=== PATIENT | male | born 1950 | race Caucasian/White ===

== ENCOUNTER 2017-04-30 23:35 | Observation (INO) | payer OTHER ==
[~2017-04-30] VITALS: Ht 180.3 cm; Wt 89.5 kg
[2017-04-30 23:35] VITALS: BP 184/91; PULSE 114; RESP 18; TEMP 98.1; O2SAT 97
[2017-04-30 23:52] VITALS: BP 201/88; PULSE 103; RESP 18; O2SAT 91; O2SAT 93
[2017-04-30] MEDS ORDERED: ROSU40 PO (23:56)
[2017-04-30] MEDS ORDERED: ASPI-183 PO (23:56)
[2017-04-30] MEDS ORDERED: CALC1TAB87 PO (23:57)
--- NOTE | 2017-04-30 23:58 | RADRPT ---
EXAM DATE/TIME: 04/30/2017 23:31 [facility] COMPARISON: No previous studies available for comparison. INDICATIONS : Seizure; slurred speech. RADIATION DOSE: 56.35 CTDIvol (mGy) MEDICAL HISTORY : Cardiovascular disease. SURGICAL HISTORY : None. ENCOUNTER: Initial ACUITY: 1 day PAIN SCALE: 0/10 LOCATION: cranial TECHNIQUE: Multiple contiguous axial images were obtained of the head. Using automated exposure control and adj ustment of the mA and/or kV according to patient size, radiation dose was kept as low as reasonably a chievable to obtain optimal diagnostic quality images. DICOM format image data is available electro nically for review and comparison. FINDINGS: CEREBRUM: The ventricles and cortical sulci are mildly widened. No evidence of midline shift, mass lesion, hem orrhage or acute infarction. No extra-axial fluid collections are seen. POSTERIOR FOSSA: The cerebellum and brainstem are intact. The 4th ventricle is midline. The cerebellopontine angle i s unremarkable. EXTRACRANIAL: The visualized portion of the orbits is intact. There is mild inferior left maxillary sinus disease. SKULL: The calvaria is intact. No evidence of skull fracture. CONCLUSION: No acute disease. There is mild atrophy. Bandar Pinedo MD on April 30, 2017 at 23:53 Board Certified Radiologist. This report was verified electronically.
[2017-05-01] VITALS (12 sets, daily range): BP systolic 127–163; BP diastolic 65–88; PULSE 70–78; RESP 17–20; TEMP 97.3–98; O2SAT 95–99
--- NOTE | 2017-05-01 00:09 | RADRPT ---
EXAM DATE/TIME: 04/30/2017 23:47 [facility] COMPARISON: No previous studies available for comparison. INDICATIONS : Shortness of breath. MEDICAL HISTORY : None. SURGICAL HISTORY : CABG. ENCOUNTER: Initial ACUITY: 1 day PAIN SCORE: 0/10 LOCATION: Bilateral chest FINDINGS: The patient is status post sternotomy. The heart size is normal. The lungs are grossly clear. CONCLUSION: No acute disease. Bandar Pinedo MD on May 01, 2017 at 0:06 Board Certified Radiologist. This report was verified electronically.
[2017-05-01 00:30] LABS: ALKALINE PHOSPHATASE 54 U/L (45-117); ALT (GPT) 33 U/L (12-78); TOTAL BILIRUBIN ADULT 0.4 MG/DL (0.2-1.0); TOTAL PROTEIN 7.8 GM/DL (6.4-8.2); TROPONIN I LESS THAN 0.02 NG/ML (0.02-0.05)
[2017-05-01 00:32] LABS: AST (GOT) 42 U/L (15-37); BICARBONATE 21.2 MEQ/L (21.0-32.0); BLOOD UREA NITROGEN 15 MG/DL (7-18); CALCIUM 9.1 MG/DL (8.5-10.1); CHLORIDE 108 MEQ/L (98-107); CREATININE 1.15 MG/DL (0.60-1.30); GLOMERULAR FILTRATION RATE 64 ML/MIN (>89); GLUCOSE,RANDOM 100 MG/DL (74-106); SODIUM (NA) 141 MEQ/L (136-145)
[2017-05-01 00:38] LABS: PROTHROMBIN TIME - PATIENT 9.9 SEC (9.8-11.6)
[2017-05-01 02:00] LABS: AUTOMATED NEUTROPHIL # 8.1 TH/MM3 (1.8-7.7); BASOPHIL % 0.3 % (0.0-2.0); EOSINOPHIL # 0.1 TH/MM3 (0-0.4); EOSINOPHIL % 0.5 % (0.0-4.0); HEMATOCRIT 43.7 % (39.0-51.0); HEMOGLOBIN 14.8 GM/DL (13.0-17.0); LYMPH % 10.8 % (9.0-44.0); LYMPHOCYTE # 1.1 TH/MM3 (1.0-4.8); MEAN CELL VOLUME 90.4 FL (80.0-100.0); MEAN CORPUSCULAR HEMOGLOBIN 30.6 PG (27.0-34.0); MEAN CORPUSCULAR HGB CONC 33.8 % (32.0-36.0); MEAN PLATELET VOLUME 6.6 FL (7.0-11.0); MONO % 6.4 % (0.0-8.0); MONOCYTE # 0.6 TH/MM3 (0-0.9); PLATELET COUNT 194 TH/MM3 (150-450); RED BLOOD COUNT 4.83 MIL/MM3 (4.50-5.90); RED CELL DISTRIBUTION WIDTH 13.3 % (11.6-17.2); WHITE BLOOD COUNT 9.8 TH/MM3 (4.0-11.0)
[2017-05-01] MEDS ORDERED: SODIUM CHLORIDE 0.9% FLUSH 10 ML FLUSH IV FLUSH PRN (02:30)
[2017-05-01] MEDS ORDERED: NALOXONE HCL 0.4 MG/ML AMP IV PUSH PRN (02:30)
[2017-05-01] MEDS ORDERED: LORazepam 2 MG/ML VIAL IV PUSH PRN (02:45)
[2017-05-01 03:22] LABS: AMORPHOUS SEDIMENT, URINE RARE; BACTERIA, URINE RARE /hpf; BILIRUBIN, URINE NEG (NEG); BLOOD, URINE NEG (NEG); GLUCOSE,URINE NEG (NEG); HYALINE CAST, URINE 3 /lpf (RARE); KETONE, URINE NEG (NEG); MUCUS URINE FEW /lpf (OCC); NITRITE,URINE NEG (NEG); PH, URINE 6.5 (5.0-8.5); RENAL EPITHELIAL CELLS <1 /hpf; URINE COLOR YELLOW (YELLW/STRAW); URINE LEUKOCYTE ESTERASE NEG (NEG)
--- NOTE | 2017-05-01 03:51 | RADRPT ---
EXAM DATE/TIME: 05/01/2017 03:13 [facility] COMPARISON: No previous studies available for comparison. INDICATIONS : Syncope. MEDICAL HISTORY : Hypercholesterolemia. SURGICAL HISTORY : Coronary bypass. ENCOUNTER: Initial ACUITY: 1 day PAIN SCORE: 0/10 LOCATION: Bilateral neck PEAK SYSTOLIC VELOCITIES (cm/sec): ICA/CCA RATIO: Right: 0.9 Left: 0.7 ICA: Right: 114 Left: 75 CCA: Right: 128 Left: 114 ECA: Right: 163 Left: 141 VERTEBRAL: Right: 20 antegrade Left: 60 antegrade Elevated flow velocities and ICA/CCA ratios have been found to correlate with increased degrees of vessel stenosis, calculated as percentage of diameter relative to a normal segment of distal ICA/CCA FINDINGS: RIGHT CAROTID: Mild plaque is seen at the carotid bulb region. No significant stenosis is visualized. The waveforms are within normal limits. LEFT CAROTID: Mild plaque is seen at the carotid bulb region. No significant stenosis is visualized. The waveforms are within normal limits. VERTEBRAL ARTERIES: Antegrade flow is seen in both vertebral arteries. MISCELLANEOUS: None. CONCLUSION: Mild plaque is seen bilaterally. A significant stenosis is not appreciated. Bandar Pinedo MD on May 01, 2017 at 3:47 Board Certified Radiologist. This report was verified electronically.
--- NOTE | 2017-05-01 05:10 | HHI.HP ---
HPI Service [facility] Primary Care Physician Unknown Admission Diagnosis Syncope, Seizure Diagnoses: Travel History International Travel<30 Days: No Contact w/Intl Traveler <30 Da: No Traveled to Known Affected Are: No History of Present Illness Hx from patient, ER MD communication and review of med records was on couch watching tv and next thing he knows he is on ambulance was in the kitchen and may have heard him and found him stated he bit his tongue was told he was shaking but dont think he hit his head no new meds except vitamin d and calcium pill otc which he started 2 weeks ago or so no headaches no fever no photophobia no ear pains or discharge had a bad flu in dec 2016 still has some cough since then and noticed chest pains with the cough traveled here from [facility] sunday afternoon- by car - took breaks every 4-5hrs because of back pain Review of Systems Except as stated in HPI: all other systems reviewed are Neg Past Family Social History Past Medical History 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 chronic back pain- started in december after the flu because he was bed bound then for about 1 week from flu illness Past Surgical History cabg Allergies: Coded Allergies: No Known Allergies (Verified Allergy, Unknown, 04/30/17) Family History cancer in mother - cant remember which one Social History no smoking/ no etoh abuse./ no drugs Physical Exam Vital Signs Vital Signs Date Time Temp Pulse Resp B/P (MAP) Pulse Ox O2 Delivery O2 Flow Rate FiO2 05/01/17 03:04 97.9 70 18 153/65 (94) 99 Room Air 05/01/17 01:08 78 18 143/76 (98) 99 Nasal Cannula 2.00 05/01/17 00:06 81 18 93 Nasal Cannula 3.00 04/30/17 23:52 93 Nasal Cannula 3.00 04/30/17 23:52 103 18 201/88 (125) 91 Nasal Cannula 2.00 04/30/17 23:35 98.1 114 18 184/91 (122) 97 Room Air Physical Exam GENERAL: This is a well-nourished, well-developed patient, in no apparent distress. SKIN: No rashes, ecchymoses or lesions. Cool and dry. HEAD: Atraumatic. Normocephalic. No temporal or scalp tenderness. EYES: No scleral icterus. No injection or drainage. ENT: Nose without bleeding, purulent drainage or septal hematoma. Airway patent.tongue bite noted NECK: Trachea midline. No JVD . Supple, nontender, no meningeal signs. CARDIOVASCULAR: Regular rate and rhythm without murmurs, gallops, or rubs. RESPIRATORY: Clear to auscultation. Breath sounds equal bilaterally. No wheezes , rales, or rhonchi. GASTROINTESTINAL: Abdomen soft, non-tender, nondistended. No guarding. MUSCULOSKELETAL: Extremities without clubbing, cyanosis, or edema. . No calf tenderness. NEUROLOGICAL: Awake and alert. Cranial nerves II through XII intact. Motor and sensory grossly within normal limits. Normal speech. Laboratory Laboratory Tests Test 04/30/17 23:42 05/01/17 01:50 05/01/17 03:50 Prothrombin Time 9.9 Prothromb Time International Ratio 1.0 Activated Partial Thromboplast Time 19.2 Blood Urea Nitrogen 15 Creatinine 1.15 Random Glucose 100 Total Protein 7.8 Albumin 4.0 Calcium Level 9.1 Alkaline Phosphatase 54 Aspartate Amino Transf (AST/SGOT) 42 Alanine Aminotransferase (ALT/SGPT) 33 Total Bilirubin 0.4 Sodium Level 141 Potassium Level 4.3 Chloride Level 108 Carbon Dioxide Level 21.2 Anion Gap 12 Estimat Glomerular Filtration Rate 64 Total Creatine Kinase 124 Troponin I LESS THAN 0.02 Ethyl Alcohol Level LESS THAN 3 White Blood Count 9.8 Red Blood Count 4.83 Hemoglobin 14.8 Hematocrit 43.7 Mean Corpuscular Volume 90.4 Mean Corpuscular Hemoglobin 30.6 Mean Corpuscular Hemoglobin Concent 33.8 Red Cell Distribution Width 13.3 Platelet Count 194 Mean Platelet Volume 6.6 Neutrophils (%) (Auto) 82.0 Lymphocytes (%) (Auto) 10.8 Monocytes (%) (Auto) 6.4 Eosinophils (%) (Auto) 0.5 Basophils (%) (Auto) 0.3 Neutrophils # (Auto) 8.1 Lymphocytes # (Auto) 1.1 Monocytes # (Auto) 0.6 Eosinophils # (Auto) 0.1 Basophils # (Auto) 0.0 CBC Comment DIFF FINAL Differential Comment Urine Color YELLOW Urine Turbidity HAZY Urine pH 6.5 Urine Specific [place] 1.021 Urine Protein 30 Urine Glucose (UA) NEG Urine Ketones NEG Urine Occult Blood NEG Urine Nitrite NEG Urine Bilirubin NEG Urine Urobilinogen LESS THAN 2.0 Urine Leukocyte Esterase NEG Urine RBC 4 Urine WBC 2 Urine Renal Epithelial Cells <1 Urine Amorphous Sediment RARE Urine Bacteria RARE Urine Hyaline Casts 3 Urine Mucus FEW Microscopic Urinalysis Comment CATH-CULTURE IND Urine Opiates Screen NEG Urine Barbiturates Screen NEG Urine Amphetamines Screen NEG Urine Benzodiazepines Screen NEG Urine Cocaine Screen NEG Urine Cannabinoids Screen NEG Date/Time Source Procedure Growth Status 05/01/17 03:50 Urine Catheterized Urine Urine Culture Pending Received Result Diagram: 05/01/17 0150 04/30/17 2342 Imaging Last 48 hours Impressions Carotid Artery Ultrasound 05/01/17 0000 Signed Impressions: Service Date/Time: Monday, May 01, 2017 03:13 - CONCLUSION: Mild plaque is seen bilaterally. A significant stenosis is not appreciated. Bandar Pinedo MD Head CT [id number]/30/[id number] Signed Impressions: Service Date/Time: Sunday, April 30, 2017 23:31 - CONCLUSION: No acute disease. There is mild atrophy. Bandar Pinedo MD Chest X-Ray [id number]/30/[id number] Signed Impressions: Service Date/Time: Sunday, April 30, 2017 23:47 - CONCLUSION: No acute disease. MD Se [place] VTE Risk Assessment Caprini VTE Risk Assessment: Mod/High Risk (score >= 2) Caprini Risk Assessment Model Point Value = 1 Point Value = 2 Point Value = 3 Point Value = 5 Age 41-60 Minor surgery BMI > 25 kg/m2 Swollen legs Varicose veins or History of unexplained or recurrent spontaneous Oral contraceptives or hormone replacement Sepsis (< 1 month) Serious lung disease, including pneumonia (< 1 month) Abnormal pulmonary function Acute myocardial infarction Congestive heart failure (< 1 month) History of inflammatory bowel disease Medical patient at bed rest Age 61-74 Arthroscopic surgery Major open surgery (> 45 min) Laparoscopic surgery (> 45 min) Malignancy Confined to bed (> 72 hours) Immobilizing plaster cast Central venous access Age >= 75 History of VTE Family history of VTE Factor V Leiden Prothrombin [id number] Lupus anticoagulant Anticardiolipin antibodies Elevated serum homocysteine Heparin-induced thrombocytopenia Other congenital or acquired thrombophilia Stroke (< 1 month) Elective arthroplasty Hip, pelvis, or leg fracture Acute spinal cord injury (< 1 month) Prophylaxis Regimen Total Risk Factor Score Risk Level Prophylaxis Regimen 0-1 Low Early ambulation 2 Moderate Order ONE of the following: *Sequential Compression Device (SCD) *Heparin 5000 units SQ BID 3-4 Higher Order ONE of the following medications: *Heparin 5000 units SQ TID *Enoxaparin/Lovenox 40 mg SQ daily (WT < 150 kg, CrCl > 30 mL/min) *Enoxaparin/Lovenox 30 mg SQ daily (WT < 150 kg, CrCl > 10-29 mL/min) *Enoxaparin/Lovenox 30 mg SQ BID (WT < 150 kg, CrCl > 30 mL/min) AND/OR *Sequential Compression Device (SCD) 5 or more Highest Order ONE of the following medications: *Heparin 5000 units SQ TID (Preferred with Epidurals) *Enoxaparin/Lovenox 40 mg SQ daily (WT < 150 kg, CrCl > 30 mL/min) *Enoxaparin/Lovenox 30 mg SQ daily (WT < 150 kg, CrCl > 10-29 mL/min) *Enoxaparin/Lovenox 30 mg SQ BID (WT < 150 kg, CrCl > 30 mL/min) AND *Sequential Compression Device (SCD) Assessment and Plan Assessment and Plan Impression: New-onset seizure Abnormal UA 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 chronic back pain- started in December after the flu because he was bed bound then for about 1 week from flu illness Plan: Seizure precautions. EEG. Ativan when necessary for seizures. Neurology consult. Carotid sono. Reviewed. No evidence of hemodynamically significant stenosis. Echocardiogram. However from history, this is more clearly that of seizures. No clear etiology of his seizures such as drug withdrawals/trauma/surgeries. He does have history of testicular cancer which was treated with aggressive chemotherapy and exploratory surgeries. Therefore would obtain MRI of the brain with and without contrast to rule out neoplastic process. DVT prophylaxis with SCD. Discussed Condition With Patient, ER physician, nursing staff Gio Silveira MD May 01, 2017 05:10
--- NOTE | 2017-05-01 06:39 | PD ---
HPI . Syncope/seizure Chief Complaint: Stroke Alert Time Seen by Provider: 23:38 Travel History International Travel<30 days: No Contact w/Intl Traveler<30days: No Traveled to known affect area: No History of Present Illness HPI 66-year-old male with witnessed syncopal episode and seizure at a hotel this evening. Patient has no history of syncope no history of seizures, witnessed by . Generalized tonic-clonic seizure with no focality to the best otherwise recollection. Patient does not recall the incident, twisting her murmurs is waking up in the ambulance. At presentation patient was somewhat confused but awake. EMS notes patient was at first fairly somnolent, with a course of transport approximate 15 minutes, patient regained full consciousness was only slightly confused by presentation to ED. She denies any prodromal symptoms of headache, visual changes, chest pain, palpitations, fever chills or sweats. Couple of traveled down from [place], no complaints of having leg pain or swelling. No history of DVTs or family history of DVTs. [facility]LY [facility], [facility] Past Medical History Narrative Medical Past medical history reviewed High Cholesterol: Yes Tetanus Vaccination: Unknown Influenza Vaccination: Yes Past Surgical History Other Surgery: Yes (coronary bypass) Social History Alcohol Use: Yes (occasional ) Tobacco Use: No Substance Use: No Allergies-Medications (Allergen,Severity, Reaction): Coded Allergies: No Known Allergies (Verified Allergy, Unknown, 04/30/17) Reported Meds & Prescriptions Reported Meds & Active Scripts Active Reported Calcium 600 with Vitamin D (Calcium Carbonate-Cholecalciferol) 600-400 mg-Unit Tab 1 Tab PO DAILY Crestor (Rosuvastatin Calcium) 40 Mg Tab 40 Mg PO DAILY Aspirin 325 Mg Tab 325 Mg PO DAILY Narrative Medication Allergies and medications reviewed Review of Systems Except as stated in HPI: all other systems reviewed are Neg General / Constitutional: No: Fever Eyes: No: Visual changes HENT: No: Headaches Cardiovascular: Positive: Syncope, No: Chest Pain or Discomfort, Palpitations, Irregular Rhythm, Tachycardia, Diaphoresis Respiratory: No: Shortness of Breath, Orthopnea, Hemoptysis, Stridor, Night Sweats, Pleuritic Pain Gastrointestinal: No: Abdominal Pain Genitourinary: No: Dysuria Musculoskeletal: No: Pain Skin: No Rash Neurologic: No: Weakness Psychiatric: No: Depression Endocrine: No: Polydipsia Hematologic/Lymphatic: No: Easy Bruising Physical Exam Narrative GENERAL: Awake and alert oriented 3 no acute distress. Slightly confused at presentation SKIN: Warm and dry. Color is normal no diaphoresis cyanosis or pallor or mottling HEAD: Atraumatic. Normocephalic. EYES: Pupils equal and round. No scleral icterus. No injection or drainage. ENT: No nasal bleeding or discharge. Mucous membranes pink and moist. NECK: Trachea midline. No JVD. Supple full range of motion CARDIOVASCULAR: Regular rate and rhythm. S1-S2 no murmurs or gallops RESPIRATORY: No accessory muscle use. Clear to auscultation. Breath sounds equal bilaterally. GASTROINTESTINAL: Abdomen soft, non-tender, nondistended. Hepatic and splenic margins not palpable. MUSCULOSKELETAL: Extremities without clubbing, cyanosis, or edema. No obvious deformities. NEUROLOGICAL: Awake and alert. No obvious cranial nerve deficits. Motor grossly within normal limits. Five out of 5 muscle strength in the arms and legs. Normal speech. Concentration and short-term memory slightly slowed, improved with observation. Repeat exam benign PSYCHIATRIC: Appropriate mood and affect; insight and judgment normal. Data Data Last Documented VS Vital Signs Date Time Temp Pulse Resp B/P (MAP) Pulse Ox O2 Delivery O2 Flow Rate FiO2 05/01/17 01:08 78 18 143/76 (98) 99 Nasal Cannula 2.00 04/30/17 23:35 98.1 Orders Orders Electrocardiogram (04/30/17 23:38) Prothrombin Time / Inr (Pt) (04/30/17 23:38) Act Partial Throm Time (Ptt) (04/30/17 23:38) Comprehensive Metabolic Panel (04/30/17 23:38) Creatine Kinase (Cpk) (04/30/17 23:38) Drug Screen, Random Urine (04/30/17 23:38) Troponin I (04/30/17 23:38) Urinalysis - C+S If Indicated (04/30/17 23:38) Ct Brain W/O Iv Contrast(Rout) (04/30/17 23:38) Chest, Single Ap (04/30/17 23:38) Ecg Monitoring (04/30/17 23:38) Iv Access Insert/Monitor (04/30/17 23:38) Oximetry (04/30/17 23:38) Alcohol (Ethanol) (04/30/17 23:38) Complete Blood Count With Diff (05/01/17 00:49) Admit Order (Ed Use Only) (05/01/17 02:28) Labs Laboratory Tests Test 04/30/17 23:42 05/01/17 01:50 Prothrombin Time 9.9 SEC Prothromb Time International Ratio 1.0 RATIO Activated Partial Thromboplast Time 19.2 SEC Blood Urea Nitrogen 15 MG/DL Creatinine 1.15 MG/DL Random Glucose 100 MG/DL Total Protein 7.8 GM/DL Albumin 4.0 GM/DL Calcium Level 9.1 MG/DL Alkaline Phosphatase 54 U/L Aspartate Amino Transf (AST/SGOT) 42 U/L Alanine Aminotransferase (ALT/SGPT) 33 U/L Total Bilirubin 0.4 MG/DL Sodium Level 141 MEQ/L Potassium Level 4.3 MEQ/L Chloride Level 108 MEQ/L Carbon Dioxide Level 21.2 MEQ/L Anion Gap 12 MEQ/L Estimat Glomerular Filtration Rate 64 ML/MIN Total Creatine Kinase 124 U/L Troponin I LESS THAN 0.02 NG/ML Ethyl Alcohol Level LESS THAN 3 MG/DL White Blood Count 9.8 TH/MM3 Red Blood Count 4.83 MIL/MM3 Hemoglobin 14.8 GM/DL Hematocrit 43.7 % Mean Corpuscular Volume 90.4 FL Mean Corpuscular Hemoglobin 30.6 PG Mean Corpuscular Hemoglobin Concent 33.8 % Red Cell Distribution Width 13.3 % Platelet Count 194 TH/MM3 Mean Platelet Volume 6.6 FL Neutrophils (%) (Auto) 82.0 % Lymphocytes (%) (Auto) 10.8 % Monocytes (%) (Auto) 6.4 % Eosinophils (%) (Auto) 0.5 % Basophils (%) (Auto) 0.3 % Neutrophils # (Auto) 8.1 TH/MM3 Lymphocytes # (Auto) 1.1 TH/MM3 Monocytes # (Auto) 0.6 TH/MM3 Eosinophils # (Auto) 0.1 TH/MM3 Basophils # (Auto) 0.0 TH/MM3 CBC Comment DIFF FINAL Differential Comment MDM Medical Decision Making Medical Screen Exam Complete: Yes Emergency Medical Condition: Yes Medical Record Reviewed: Yes Differential Diagnosis TIA versus CVA, syncope, seizure, hypoperfusion seizure Narrative Course Patient had steady improvement while in ED. CT of the head reviewed by radiology, no acute intracranial abnormalities. Laboratory exam is reviewed, no significant rales. EKG sinus tachycardia at 10 3 bpm, nonischemic, intervals normal. Case discussed with Dr. Silveira from hospital service, admitted for observation. MRI/MRA of the brain for the a.m. discussed. Diagnosis Primary Impression: Syncope and collapse Additional Impression: Seizure Admitting Information Admitting Physician Requests: Observation Condition: Angel Varner MD May 01, 2017 06:39
[2017-05-01 06:47] LABS: TROPONIN I LESS THAN 0.02 NG/ML (0.02-0.05)
[2017-05-01] MEDS: SODIUM CHLORIDE 0.9% FLUSH 10 ML FLUSH IV FLUSH SCH ×2 (09:23→21:42)
[2017-05-01] MEDS: ATORVASTATIN 80 MG TAB PO SCH (09:24)
[2017-05-01] MEDS: ASPIRIN 325 MG TAB PO SCH (09:24)
--- NOTE | 2017-05-01 09:46 | PD.CONS ---
History of Present Illness Service Neurology Consult Requested By medical Reason for Consult syncope, sz Primary Care Physician Unknown History of Present Illness 66 y/o m from [facility] admitted for syncopal episode. was speaking with son on phone at around 9pm when he started shaking observed by his and become confused. does not entirely recollect event. not present. no previous occurrence. no hx of tia/stroke/sz. no hx of head injury. denies binge drinking or any provoking factors. no hx of medical clerk infection. on aspirin for hx of cabg. carotid u/s negative. ct brain naicp. glucose 100. uds negative. Review of Systems Except as stated in HPI: all other systems reviewed are Neg Past Family Social History Past Medical History 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 chronic back pain- started in december after the flu because he was bed bound then for about 1 week from flu illness Past Surgical History cabg Allergies: Coded Allergies: No Known Allergies (Verified Allergy, Unknown, 04/30/17) Family History cancer in mother - cant remember which one Social History no smoking/ no etoh abuse./ no drugs Review of Systems All other ROS: ROS reviewed as documented in chart Past Family Social History Allergies: Coded Allergies: No Known Allergies (Verified Allergy, Unknown, 04/30/17) Active Ordered Medications Current Medications Medications (Trade) Dose Ordered Sig/Bianka Route Start Time Stop Time Status Last Admin (NS Flush) 2 ml UNSCH PRN IV FLUSH 05/01/17 02:30 (NS Flush) 2 ml BID IV FLUSH 05/01/17 09:00 05/01/17 09:23 (Narcan Inj) 0.4 mg UNSCH PRN IV PUSH 05/01/17 02:30 (Ativan Inj) 1 mg Q15M PRN IV PUSH 05/01/17 02:45 (Aspirin) 325 mg DAILY PO 05/01/17 09:00 05/01/17 09:24 (Lipitor) 80 mg DAILY PO 05/01/17 09:00 05/01/17 09:24 Exam I&O / VS Vital Signs Date Time Temp Pulse Resp B/P (MAP) Pulse Ox O2 Delivery O2 Flow Rate FiO2 05/01/17 08:29 74 18 151/77 (101) 98 Room Air 05/01/17 06:59 98.0 78 18 137/71 (93) 99 Room Air 05/01/17 03:04 97.9 70 18 153/65 (94) 99 Room Air 05/01/17 01:08 78 18 143/76 (98) 99 Nasal Cannula 2.00 05/01/17 00:06 81 18 93 Nasal Cannula 3.00 04/30/17 23:52 93 Nasal Cannula 3.00 04/30/17 23:52 103 18 201/88 (125) 91 Nasal Cannula 2.00 04/30/17 23:35 98.1 114 18 184/91 (122) 97 Room Air General: Alert and Oriented, No acute distress Eye: EOMI Respiratory: Non-labored respirations Musculoskeletal: ROM Neurologic: Alert, Oriented, Normal sensory, Normal motor, No focal defects, CN II-XII intact, Normal DTR's Psychiatric: Cooperative, Appropriate mood & affect, Normal judgement, Non- suicidal Review/Management Diagnosis/Plan: (1) Seizure ICD Codes: R56.9 - Unspecified convulsions Status: Acute Plan: possible vs convulsive syncope recs eeg/tele echo mri/mra brain labs orthostatics no driving/climbing heights consider sz med if eeg + and rest of w/u negative (2) Syncope and collapse ICD Codes: R55 - Syncope and collapse Status: Acute (3) S/P CABG x 5 ICD Codes: Z95.1 - Presence of aortocoronary bypass graft Status: Chronic (4) HLD (hyperlipidemia) ICD Codes: E78.5 - Hyperlipidemia, unspecified Status: Chronic Jhonatan Vieira MD May 01, 2017 09:46
--- NOTE | 2017-05-01 10:20 | HHI.PR ---
Subjective Remarks Follow-up on patient with syncopal episode, questionable seizure. Patient seen and examined. is at the bedside. Patient states he feels well. Denies any complaints at this time. Denies any vision changes, headaches, weakness, numbness or tingling. Denies any chest pain or shortness of breath. Denies any nausea, vomiting or abdominal pain. He has a history of chronic back pain recently exacerbated following a flu illness a week ago but does not take any pain medication at home. Since the flu, he reports some lingering intermittent cough with associated chest pain but states it's infrequent. Patient denies any history of seizure disorder, stroke or TIA. Objective Vitals Vital Signs Date Time Temp Pulse Resp B/P (MAP) Pulse Ox O2 Delivery O2 Flow Rate FiO2 05/01/17 08:29 74 18 151/77 (101) 98 Room Air 05/01/17 06:59 98.0 78 18 137/71 (93) 99 Room Air 05/01/17 03:04 97.9 70 18 153/65 (94) 99 Room Air 05/01/17 01:08 78 18 143/76 (98) 99 Nasal Cannula 2.00 05/01/17 00:06 81 18 93 Nasal Cannula 3.00 04/30/17 23:52 93 Nasal Cannula 3.00 04/30/17 23:52 103 18 201/88 (125) 91 Nasal Cannula 2.00 04/30/17 23:35 98.1 114 18 184/91 (122) 97 Room Air Result Diagram: 05/01/17 0150 04/30/17 2342 Imaging Last Impressions Carotid Artery Ultrasound 05/01/17 0000 Signed Impressions: Service Date/Time: Monday, May 01, 2017 03:13 - CONCLUSION: Mild plaque is seen bilaterally. A significant stenosis is not appreciated. Bandar Pinedo MD Head CT 04/30/172337 Signed Impressions: Service Date/Time: Sunday, April 30, 2017 23:31 - CONCLUSION: No acute disease. There is mild atrophy. Bandar Pinedo MD Chest X-Ray 04/30/172337 Signed Impressions: Service Date/Time: Sunday, April 30, 2017 23:47 - CONCLUSION: No acute disease. Bandar Pinedo MD Objective Remarks GENERAL: This is a well-nourished, well-developed male patient, in no apparent distress. Awake and alert. at the bedside. SKIN: Cool and dry. HEAD: Atraumatic. Normocephalic. EYES: EOMI. No scleral icterus. No injection or drainage. ENT: Nose without bleeding or purulent drainage. Airway patent. Tongue bite noted. NECK: Trachea midline. No JVD . Supple, nontender, no meningeal signs. CARDIOVASCULAR: Regular rate and rhythm without murmurs, gallops, or rubs. RESPIRATORY: Clear to auscultation. Breath sounds equal bilaterally. No wheezes , rales, or rhonchi. GASTROINTESTINAL: Abdomen soft, non-tender, nondistended. No guarding. MUSCULOSKELETAL: Extremities without clubbing, cyanosis, or edema. No calf tenderness. NEUROLOGICAL: Awake and alert. Cranial nerves II through XII grossly intact. Motor and sensory grossly within normal limits bilateral upper and lower extremities. Normal speech. Medications and IVs Current Medications Medications (Trade) Dose Ordered Sig/Bianka Route Start Time Stop Time Status Last Admin (NS Flush) 2 ml UNSCH PRN IV FLUSH 05/01/17 02:30 (NS Flush) 2 ml BID IV FLUSH 05/01/17 09:00 05/01/17 09:23 (Narcan Inj) 0.4 mg UNSCH PRN IV PUSH 05/01/17 02:30 (Ativan Inj) 1 mg Q15M PRN IV PUSH 05/01/17 02:45 (Aspirin) 325 mg DAILY PO 05/01/17 09:00 05/01/17 09:24 (Lipitor) 80 mg DAILY PO 05/01/17 09:00 05/01/17 09:24 A/P Assessment and Plan Syncope Possible seizure - CT head shows no acute process - Neurology consulted, appreciate assistance. No driving or climbing heights per neuro. Will consider seizure medication if EEG positive and remainder of workup negative. - EEG - MRI/MRA brain - 2D echocardiogram - obtain A1c, TSH and lipid profile - US carotids shows no significant stenosis - initial troponin 0.02. Continue to trend Oswaldo. - Continuous cardiac monitoring - seizure precautions CAD s/p CABG - patient has no cardiac complaints - ASA daily - monitor on telemetry Bacteruria - UA with 4 RBCs, rare bacteria, culture indicated - patient is asymptomatic - f/u on urine culture results. Will hold off on initiation of antibiotics at this time. Hyperlipidemia - Resume patient's home dose of Lipitor 80 mg daily Chronic back pain - stable DVT prophylaxis - Heparin sq Mitali Pleitez May 01, 2017 10:20
[2017-05-01] MEDS ORDERED: GADODIAMIDE PF 287 MG/ML 20 ML VIAL (for RAD MRI) IV PUSH ONE (11:30)
--- NOTE | 2017-05-01 11:46 | RADRPT ---
EXAM DATE/TIME: 05/01/2017 10:59 [facility] COMPARISON: CT BRAIN W/O CONTRAST, April 30, 2017, 23:31. INDICATIONS : CVA. Syncopal episode with possible seizure. CONTRAST: 18 cc Omniscan (gadodiamide) IV MEDICAL HISTORY : Hypercholesterolemia. Carcinoma, testicular. SURGICAL HISTORY : CABG ENCOUNTER: Initial ACUITY: 2 day PAIN SCORE: 0/10 LOCATION: head TECHNIQUE: Multiplanar, multisequence MRI of the brain was performed both prior to and following the administrat ion of paramagnetic contrast. FINDINGS: CEREBRUM: The ventricles are normal for age. No evidence of midline shift, mass lesion, hemorrhage or acute in farction. No extraaxial fluid collections are seen. The pituitary gland and suprasellar cistern are normal in configuration. WHITE MATTER: Few dispersed areas of small deep white matter microvascular ischemic demyelinization. POSTERIOR FOSSA: The cerebellum and brainstem are intact. The 4th ventricle is midline. The cerebellopontine angle is unremarkable. The cerebellar tonsils are normal in position. DIFFUSION IMAGING: No focal areas of restricted diffusion are seen. No evidence of acute infarction. EXTRACRANIAL: The visualized portions of the orbits and paranasal sinuses are unremarkable. POST-CONTRAST: No abnormal areas of parenchymal or dural enhancement. No evidence of blood-brain barrier breakdown. CONCLUSION: No acute intracranial process. Negative for enhancing lesion or metastatic disease. Few deep white matter punctate areas of microvascular ischemi c demyelinization. aRghu Kwan MD on May 01, 2017 at 11:40 Board Certified Radiologist. This report was verified electronically.
--- NOTE | 2017-05-01 11:48 | RADRPT ---
EXAM DATE/TIME: 05/01/2017 10:59 [facility] COMPARISON: No previous studies available for comparison. INDICATIONS : Syncopal episode with possible seizure. MEDICAL HISTORY : Carcinoma, testicular. Hypercholesterolemia. SURGICAL HISTORY : CABG ENCOUNTER: Initial ACUITY: 2 day PAIN SCORE: 0/10 LOCATION: head Please note a normal MRA of the brain does not entirely exclude the possibility of a small aneurysm, nor the possibility of distal intracranial vessel disease. TECHNIQUE: 3D time of flight MRA was performed. Source images, multiplanar STS MIP, and 3D volume MIP reconstru ctions were reviewed. FINDINGS: There is excellent visualization of the major intracranial arteries out to the second-order branch ve ssels. There is no evidence for aneurysm, vessel truncation or stenosis, and no evidence for vascula r malformation. CONCLUSION: Normal examination. Raghu Kwan MD on May 01, 2017 at 11:44 Board Certified Radiologist. This report was verified electronically.
[2017-05-01 14:10] LABS: CHOLESTEROL 148 MG/DL (120-200); MAGNESIUM 2.3 MG/DL (1.5-2.5)
[2017-05-01 14:13] LABS: HDL CHOLESTEROL 49.2 MG/DL (40.0-60.0); LDL CHOLESTEROL 62 MG/DL (0-99); TRIGLYCERIDES 186 MG/DL (42-150); TROPONIN I LESS THAN 0.02 NG/ML (0.02-0.05)
--- NOTE | 2017-05-01 14:22 | EKG ---
Date Performed: 04/30/2017 Time Performed: 23:53:36 PTAGE: 66 years EKG: SINUS TACHYCARDIA POSSIBLE LEFT ATRIAL ENLARGEMENT POSSIBLE RIGHT VENTRICULAR CONDUCTION DE LAY NONSPECIFIC ST & T-WAVE ABNORMALITY ABNORMAL RHYTHM ECG consider myocardial ischemia NO PREVIOUS TRACING DOCTOR: Stefanie Laureano Interpretating Date/Time 05/01/2017 14:21:09
--- NOTE | 2017-05-01 14:23 | EKG ---
Date Performed: 05/01/2017 Time Performed: 05:50:54 PTAGE: 66 years EKG: Sinus rhythm POSSIBLE RIGHT VENTRICULAR CONDUCTION DELAY MODERATE T-WAVE ABNORMALITY, CONSIDER LATERAL ISCHEMIA A BNORMAL ECG Compared to PREVIOUS TRACING sinus tachycardia has resolved and there has been some improvement in t he ST segment depression but the T wave changes persist. Clinical correlation will be important. PREV IOUS TRACIN04/30/2017 23.53 DOCTOR: Stefanie Laureano Interpretating Date/Time 05/01/2017 14:22:38
[2017-05-01 18:35] LABS: HEMOGLOBIN A1C 5.9 % (4.3-6.0)
--- NOTE | 2017-05-01 18:55 | MG ---
cc: JESUS REIS M.D. Lab No: [id number] Date: 05/01/17 Age: Sex: M Race: Syncopal episode Aspirin, Lipitor A 10-11 Hz 60 microvolt symmetric posterior rhythm is noted. The patient falls asleep and reaches stage II sleep with some K complexes. The recording overall is synchronous and symmetric. Photic stimulation was performed without significant posterior driving. Hyperventilation was not performed. IMPRESSION Normal primarily stage II sleep EEG - no evidence for focal or diffuse abnormality. MD GISELLE Doe/ /6:18 PM /6:36 PM
--- NOTE | 2017-05-01 19:41 | ECHRPT ---
Indication: Syncope and collapse CONCLUSIONS The left ventricular systolic function is normal with an estimated ejection fraction in the range of 60-65%. Wall thickness is normal. Normal left ventricular size. Mild mitral valve regurgitation. BP: 137 / 71 HR: 78 Rhythm: Sinus MEASUREMENTS (Male / Female) Normal Values Technical Quality:Fair 2D ECHO LV Diastolic Diameter PLAX 5.2 cm 4.2 - 5.9 / 3.9 - 5.3 cm LV Systolic Diameter PLAX 3.8 cm IVS Diastolic Thickness 1.1 cm 0.6 - 1.0 / 0.6 - 0.9 cm LVPW Diastolic Thickness 1.0 cm 0.6 - 1.0 / 0.6 - 0.9 cm LV Relative Wall Thickness 0.4 LVOT Diameter 2.1 cm M-MODE Aortic Root Diameter MM 2.9 cm LA Systolic Diameter MM 4.4 cm LA Ao Ratio MM 1.5 AV Cusp Separation MM 1.9 cm DOPPLER AV Peak Velocity 125.0 cm/s AV Peak Gradient 6.3 mmHg LVOT Peak Velocity 109.0 cm/s LVOT Peak Gradient 4.8 mmHg AV Area Cont Eq pk 3.0 cm MR Peak Velocity 360.0 cm/s MR Peak Gradient 51.8 mmHg Mitral E Point Velocity 85.9 cm/s Mitral A Point Velocity 54.3 cm/s Mitral E to A Ratio 1.6 LV E' Lateral Velocity 6.3 cm/s Mitral E to LV E' Lateral Ratio 13.5 LV E' Septal Velocity 5.8 cm/s Mitral E to LV E' Septal Ratio 14.9 TR Peak Velocity 241.0 cm/s TR Peak Gradient 23.2 mmHg Right Atrial Pressure 10.0 mmHg Pulmonary Artery Systolic Pressu 33.2 mmHg Right Ventricular Systolic Press 33.2 mmHg PV Peak Velocity 89.6 cm/s PV Peak Gradient 3.2 mmHg FINDINGS LEFT VENTRICLE The left ventricular systolic function is normal with an estimated ejection fraction in the range of 60-65%. Wall thickness is normal. Normal left ventricular size. RIGHT VENTRICLE Normal right ventricular size and systolic function. LEFT ATRIUM The left atrial size is normal. RIGHT ATRIUM The right atrial size is normal. ATRIAL SEPTUM Normal atrial septal thickness without atrial level shunting by limited color doppler interrogation. AORTA The aortic root and proximal ascending aorta are normal in size on limited imaging. MITRAL VALVE Mild mitral valve regurgitation. AORTIC VALVE Trileaflet aortic valve. No aortic valve stenosis or regurgitation. TRICUSPID VALVE Structurally normal tricuspid valve. No tricuspid valve stenosis or regurgitation. PULMONARY VALVE No pulmonary valve regurgitation or stenosis. VESSELS The inferior vena cava is normal in size. PERICARDIUM No pericardial effusion. Zhane العراقي MD, FACC (Electronically Signed) Final Date:01 May 2017 19:41
[2017-05-01] MEDS: HEPARIN SODIUM - SQ 10,000 UNITS/ML VIAL SQ SCH (21:42)
[2017-05-02 00:05] VITALS: PULSE 66
[2017-05-02 00:36] VITALS: BP 136/82; PULSE 66; RESP 18; TEMP 97.8; O2SAT 96
[2017-05-02 04:00] VITALS: PULSE 64
[2017-05-02 07:24] VITALS: BP 157/78; PULSE 67; RESP 18; TEMP 97.9; O2SAT 97
--- NOTE | 2017-05-02 08:01 | HHI.PR ---
Review/Management Diagnosis/Plan: (1) Seizure ICD Codes: R56.9 - Unspecified convulsions Status: Acute Plan: hx suggestive of sz. mother apparently had one sz eeg-negative carotid-negative mri/mra brain-negative lipid panel nml orthostatics nml recs d/c planning today continue aspirin no sz meds at this point. if recurrent event then will add. pt/spouse agree no driving/climbing heights x 6 months of being sz/spell free (2) Syncope and collapse ICD Codes: R55 - Syncope and collapse Status: Acute (3) S/P CABG x 5 ICD Codes: Z95.1 - Presence of aortocoronary bypass graft Status: Chronic (4) HLD (hyperlipidemia) ICD Codes: E78.5 - Hyperlipidemia, unspecified Status: Chronic Subjective Subjective Comments No acute events reported describes pt as having convulsive activity and strange gustatory sounds remembers his mother having had a single sz No headache No chest pain No dyspnea Active Medications Current Medications Medications (Trade) Dose Ordered Sig/Bianka Route Start Time Stop Time Status Last Admin (NS Flush) 2 ml UNSCH PRN IV FLUSH 05/01/17 02:30 (NS Flush) 2 ml BID IV FLUSH 05/01/17 09:00 05/01/17 21:42 (Narcan Inj) 0.4 mg UNSCH PRN IV PUSH 05/01/17 02:30 (Ativan Inj) 1 mg Q15M PRN IV PUSH 05/01/17 02:45 (Aspirin) 325 mg DAILY PO 05/01/17 09:00 05/01/17 09:24 (Lipitor) 80 mg DAILY PO 05/01/17 09:00 05/01/17 09:24 (Heparin Inj) 5,000 units Q12HR SQ 05/01/17 21:00 05/01/17 21:42 Allergies Allergies Coded Allergies No Known Allergies (Verified Allergy, Unknown, 04/30/17) Review of Systems All other ROS: ROS reviewed as documented in chart Exam I&O / VS Vital Signs Date Time Temp Pulse Resp B/P (MAP) Pulse Ox O2 Delivery O2 Flow Rate FiO2 05/02/17 07:24 97.9 67 18 157/78 (104) 97 05/02/17 04:00 64 05/02/17 00:36 97.8 66 18 136/82 (100) 96 05/02/17 00:05 66 05/01/17 22:00 71 127/84 (98) 97 153/83 (106) 05/01/17 21:11 97.9 72 18 132/69 (90) 95 05/01/17 20:00 77 05/01/17 16:12 76 05/01/17 16:00 97.3 74 17 141/73 (95) 96 05/01/17 14:40 75 17 148/77 (100) 97 05/01/17 14:00 78 19 148/79 (102) 97 Room Air 05/01/17 11:45 77 20 162/77 (105) 85 17 163/88 (113) 84 19 153/82 (105) 05/01/17 08:29 74 18 151/77 (101) 98 Room Air General: Alert and Oriented, No acute distress Eye: EOMI Respiratory: Non-labored respirations Musculoskeletal: ROM Neurologic: Alert, Oriented, Normal sensory, Normal motor, No focal defects, CN II-XII intact, Normal DTR's Psychiatric: Cooperative, Appropriate mood & affect, Normal judgement, Non- suicidal Objective Radiology Results Active Medications Aspirin (Aspirin) 325 mg DAILY PO Last administered on 05/01/17at 09:24; Start at 09:00 Atorvastatin Calcium (Lipitor) 80 mg DAILY PO Last administered on 05/01/17at 09: 24; Start 05/01/17 at 09:00 Gadodiamide (Omniscan Pf Inj) 18 ml [employer]-MED ONCE IV PUSH Last administered on at 11:30; Start 05/01/17 at 11:30; Stop 05/01/17 at 12:08; Status DC Heparin Sodium (Porcine) (Heparin Inj) 5,000 units Q12HR SQ Last administered on 05/01/17at 21:42; Start 05/01/17 at 21:00 Sodium Chloride (NS Flush) 2 ml BID IV FLUSH Last administered on 05/01/17at 21: 42; Start 05/01/17 at 09:00 Micro and Labs Laboratory Tests Test 05/01/17 13:10 Erythrocyte Sedimentation Rate 5 Hemoglobin A1c 5.9 Magnesium Level 2.3 Total Creatine Kinase 210 Troponin I LESS THAN 0.02 Triglycerides Level 186 Cholesterol Level 148 LDL Cholesterol 62 HDL Cholesterol 49.2 Cholesterol/HDL Ratio 3.00 Vitamin B12 Level 249 Thyroid Stimulating Hormone 3rd Gen 2.370 Date/Time Source Procedure Growth Status 05/01/17 03:50 Urine Catheterized Urine Urine Culture Pending Received Jhonatan Vieira MD May 02, 2017 08:01
--- NOTE | 2017-05-02 08:33 | HHI.PR ---
Subjective Remarks Patient in nad. Says he feel much better.Seen by Dr Murillo cleared for DC Patient denies any seizures, no motor deficit or sensory deficit. No fever or chills. Denies chest pain or sob. Objective Vitals Vital Signs Date Time Temp Pulse Resp B/P (MAP) Pulse Ox O2 Delivery O2 Flow Rate FiO2 05/02/17 07:24 97.9 67 18 157/78 (104) 97 05/02/17 04:00 64 05/02/17 00:36 97.8 66 18 136/82 (100) 96 05/02/17 00:05 66 05/01/17 22:00 71 127/84 (98) 97 153/83 (106) 05/01/17 21:11 97.9 72 18 132/69 (90) 95 05/01/17 20:00 77 05/01/17 16:12 76 05/01/17 16:00 97.3 74 17 141/73 (95) 96 05/01/17 14:40 75 17 148/77 (100) 97 05/01/17 14:00 78 19 148/79 (102) 97 Room Air 05/01/17 11:45 77 20 162/77 (105) 85 17 163/88 (113) 84 19 153/82 (105) I/O 05/01/17 05/01/17 05/01/17 05/02/17 05/02/17 05/02/17 07:00 15:00 23:00 07:00 15:00 23:00 Intake Total 250 ml 480 ml Balance 250 ml 480 ml Intake Oral 250 ml 480 ml # Voids 1 2 2 # Bowel Movements 1 Result Diagram: 05/01/17 0150 04/30/17 2342 Imaging Last Impressions Head Magnetic Resonance Angiography 05/01/17 0000 Signed Impressions: Service Date/Time: Monday, May 01, 2017 10:59 - CONCLUSION: Normal examination. Raghu Kwan MD Carotid Artery Ultrasound 05/01/17 0000 Signed Impressions: Service Date/Time: Monday, May 01, 2017 03:13 - CONCLUSION: Mild plaque is seen bilaterally. A significant stenosis is not appreciated. Bandar Pinedo MD Brain MRI 05/01/17 0000 Signed Impressions: Service Date/Time: Monday, May 01, 2017 10:59 - CONCLUSION: No acute intracranial process. Negative for enhancing lesion or metastatic disease. Few deep white matter punctate areas of microvascular ischemic demyelinization. Raghu Kwan MD Head CT 04/30/172337 Signed Impressions: Service Date/Time: Sunday, April 30, 2017 23:31 - CONCLUSION: No acute disease. There is mild atrophy. Bandar Pinedo MD Chest X-Ray 04/30/172337 Signed Impressions: Service Date/Time: Sunday, April 30, 2017 23:47 - CONCLUSION: No acute disease. Bandar Pinedo MD Objective Remarks GENERAL: This is a well-nourished, well-developed patient, in no apparent distress. CARDIOVASCULAR: Regular rate and rhythm without murmurs, gallops, or rubs. RESPIRATORY: Clear to auscultation. Breath sounds equal bilaterally. No wheezes , rales, or rhonchi. GASTROINTESTINAL: Abdomen soft, non-tender, nondistended. No guarding. MUSCULOSKELETAL: Extremities without clubbing, cyanosis, or edema. . No calf tenderness. NEUROLOGICAL: Awake and alert. Cranial nerves II through XII intact. Motor and sensory grossly within normal limits. Normal speech. A/P Assessment and Plan New-onset seizure Abnormal UA, cx with no growth , asymptomatic CAD with CABG 10yrs ago - 5 bypass Chronic back pain- started in December after the flu because he was bed bound then for about 1 week from flu illness Seizure precautions. EEG normal Neurology consult. Carotid sono. Reviewed. No evidence of hemodynamically significant stenosis. Echocardiogram. However from history, this is more clearly that of seizures. No clear etiology of his seizures such as drug withdrawals/trauma/surgeries. He does have history of testicular cancer which was treated with aggressive chemotherapy and exploratory surgeries. Therefore would obtain MRI of the brain with and without contrast to rule out neoplastic process. MRI normal No need for meds per neuro. No driving/climbing heights x 6 months of being sz/spell free Discharged home in stable condition . Patient to follow up as OP with PCP and consultants Abigail Beck MD May 02, 2017 08:33
--- NOTE | 2017-05-02 08:34 | HHI.DCPOC ---
Discharge Care Plan Goals to Promote Your Health * To prevent worsening of your condition and complications * To maintain your health at the optimal level Directions to Meet Your Goals Take your medications as prescribed Follow your dietary instruction Follow activity as directed Keep your appointments as scheduled Take your immunizations and boosters as scheduled If your symptoms worsen call your PCP, if no PCP go to Urgent Care Center or Emergency Room Smoking is Dangerous to Your Health. Avoid second hand smoke Call the 24-hour hour crisis hotline for domestic abuse at Abigail Beck MD May 02, 2017 08:34
[2017-05-02] MEDS: HEPARIN SODIUM - SQ 10,000 UNITS/ML VIAL SQ SCH (09:00)
[2017-05-02] MEDS: SODIUM CHLORIDE 0.9% FLUSH 10 ML FLUSH IV FLUSH SCH (09:12)
[2017-05-02] MEDS: ASPIRIN 325 MG TAB PO SCH (09:13)
[2017-05-02] MEDS: ATORVASTATIN 80 MG TAB PO SCH (09:13)
[2017-05-02 09:19] VITALS: PULSE 66
--- NOTE | 2017-05-02 10:49 | EKG ---
Date Performed: 05/01/2017 Time Performed: 12:18:30 PTAGE: 66 years EKG: Sinus rhythm POSSIBLE RIGHT VENTRICULAR CONDUCTION DELAY SEPTAL MYOCARDIAL INFARCTION ABNORMAL ECG PREVIOUS TRACING : 05/01/2017 05.50 DOCTOR: Donnie Shah Interpretating Date/Time 05/02/2017 10:47:27
--- NOTE | 2017-05-02 23:10 | HHI.DS ---
Discharge Summary Admission Date May 01, 2017 at 02:29 Discharge Date: May 02, 2017 Admitting Diagnosis Syncope, Seizure (1) Seizure ICD Code: R56.9 - Unspecified convulsions (2) Syncope ICD Code: R55 - Syncope and collapse (3) HLD (hyperlipidemia) ICD Code: E78.5 - Hyperlipidemia, unspecified Status: Chronic (4) S/P CABG x 5 ICD Code: Z95.1 - Presence of aortocoronary bypass graft Status: Chronic Procedures none Brief History - From Admission Hx from patient, ER MD communication and review of med records was on couch watching tv and next thing he knows he is on ambulance was in the kitchen and may have heard him and found him stated he bit his tongue was told he was shaking but dont think he hit his head no new meds except vitamin d and calcium pill otc which he started 2 weeks ago or so no headaches no fever no photophobia no ear pains or discharge had a bad flu in dec 2016 still has some cough since then and noticed chest pains with the cough traveled here from [facility] sunday afternoon- by car - took breaks every 4-5hrs because of back pain CBC/BMP: 05/01/17 0150 04/30/17 2342 Significant Findings Laboratory Tests Test 04/30/17 23:42 05/01/17 01:50 05/01/17 03:50 05/01/17 06:05 Activated Partial Thromboplast Time 19.2 SEC (24.3-30.1) Aspartate Amino Transf (AST/SGOT) 42 U/L (15-37) Chloride Level 108 MEQ/L (98-107) Estimat Glomerular Filtration Rate 64 ML/MIN (>89) Troponin I LESS THAN 0.02 NG/ML LESS THAN 0.02 NG/ML Mean Platelet Volume 6.6 FL (7.0-11.0) Neutrophils (%) (Auto) 82.0 % (16.0-70.0) Neutrophils # (Auto) 8.1 TH/MM3 (1.8-7.7) Urine Turbidity HAZY (CLEAR) Urine Protein 30 mg/dL (NEG-TRACE) Urine RBC 4 /hpf (0-3) Urine Bacteria RARE /hpf (NONE) Urine Mucus FEW /lpf (OCC) Test 05/01/17 13:10 Troponin I LESS THAN 0.02 NG/ML Triglycerides Level 186 MG/DL (42-150) Imaging Last Impressions Head Magnetic Resonance Angiography 05/01/17 0000 Signed Impressions: Service Date/Time: Monday, May 01, 2017 10:59 - CONCLUSION: Normal examination. Raghu Kwan MD Carotid Artery Ultrasound 05/01/17 0000 Signed Impressions: Service Date/Time: Monday, May 01, 2017 03:13 - CONCLUSION: Mild plaque is seen bilaterally. A significant stenosis is not appreciated. Bandar Pinedo MD Brain MRI 05/01/17 0000 Signed Impressions: Service Date/Time: Monday, May 01, 2017 10:59 - CONCLUSION: No acute intracranial process. Negative for enhancing lesion or metastatic disease. Few deep white matter punctate areas of microvascular ischemic demyelinization. Raghu Kwan MD Head CT 04/30/172337 Signed Impressions: Service Date/Time: Sunday, April 30, 2017 23:31 - CONCLUSION: No acute disease. There is mild atrophy. Bandar Pinedo MD Chest X-Ray 04/30/172337 Signed Impressions: Service Date/Time: Sunday, April 30, 2017 23:47 - CONCLUSION: No acute disease. Bandar Pinedo MD PE at Discharge GENERAL: This is a well-nourished, well-developed patient, in no apparent distress. CARDIOVASCULAR: Regular rate and rhythm without murmurs, gallops, or rubs. RESPIRATORY: Clear to auscultation. Breath sounds equal bilaterally. No wheezes , rales, or rhonchi. GASTROINTESTINAL: Abdomen soft, non-tender, nondistended. No guarding. MUSCULOSKELETAL: Extremities without clubbing, cyanosis, or edema. . No calf tenderness. NEUROLOGICAL: Awake and alert. Cranial nerves II through XII intact. Motor and sensory grossly within normal limits. Normal speech. Hospital Course New-onset seizure Abnormal UA, cx with no growth , asymptomatic CAD with CABG 10yrs ago - 5 bypass Chronic back pain- started in December after the flu because he was bed bound then for about 1 week from flu illness Seizure precautions. EEG normal Neurology consult. Carotid sono. Reviewed. No evidence of hemodynamically significant stenosis. Echocardiogram. However from history, this is more clearly that of seizures. No clear etiology of his seizures such as drug withdrawals/trauma/surgeries. He does have history of testicular cancer which was treated with aggressive chemotherapy and exploratory surgeries. Therefore would obtain MRI of the brain with and without contrast to rule out neoplastic process. MRI normal No need for meds per neuro. No driving/climbing heights x 6 months of being sz/spell free Discharged home in stable condition . Patient to follow up as OP with PCP and consultants Pt Condition on Discharge: Stable Discharge Disposition: Discharge Home Discharge Time: > 30 minutes Discharge Instructions DIET: Follow Instructions for: Heart Healthy Diet Activities you can perform: Regular-No Restrictions Activities to Avoid: Driving Other Activity Instructions: No driving/climbing heights/caring for small children unassisted/swimming alone for at least 6 months Follow up Referrals: Neurology - 1 Week with Jhonatan Vieira MD PCP Follow-up - 2-3 Days Continued Medications: Aspirin (Aspirin) 325 Mg Tab 325 MG PO DAILY, #30 TAB 0 Refills Calcium Carbonate-Cholecalciferol (Calcium 600 with Vitamin D) 600-400 mg-Unit Tab 1 TAB PO DAILY for Calcium Supplement, TAB 0 Refills Rosuvastatin (Crestor) 40 Mg Tab 40 MG PO DAILY for Cholesterol Management, #30 TAB 0 Refills Abigail Beck MD May 02, 2017 23:10
== END 2017-05-02 09:26 | disposition home or self-care (01) ==
LOC: NEPE 23:35 → NEDA 05-01 02:29 → NEDH 05-01 06:22 → UNDODISOB 05-01 14:01 → NEPGCP 05-01 15:07
PROVIDERS: ADMIT Hospitalist; ATTEND Hospitalist
DX: R56.9 Unspecified convulsions (principal); R55 Syncope and collapse; I25.10 Atherosclerotic heart disease of native coronary artery without angina pectoris; E78.5 Hyperlipidemia, unspecified; M54.9 Dorsalgia, unspecified; G89.29 Other chronic pain; Z79.899 Other long term (current) drug therapy; Z95.1 Presence of aortocoronary bypass graft; Z85.47 Personal history of malignant neoplasm of testis
CPT/HCPCS: 70450; 70544; 70553; 71045; 80053; 80061; 80307; 81001; 82550; 82607; 83036; 83735; 84443; 84484; 85025; 85610; 85652; 85730; 87086; 93005; 93306; 93880; 95819; 97161; 99285; A9579; G0378; G8987; G8988; G8989; J1644